=== PATIENT | male | born 1945 | race Caucasian/White ===

== ENCOUNTER 2018-01-03 10:45 | Inpatient (IN) | payer MEDICARE, BC ==
[~2018-01-03] VITALS: Ht 180.3 cm; Wt 82.6 kg
[2018-01-03] MEDS ORDERED: [UNRECOGNIZED DRUG - OTHER] IO (12:49)
[2018-01-03] MEDS ORDERED: ZOLPIDEM5 MG PO (12:50)
[2018-01-03] MEDS ORDERED: APRESOLINE10 MG PO (12:50)
[2018-01-03] MEDS ORDERED: ASPIRIN325 MG PO (12:51)
[2018-01-03] MEDS ORDERED: TRAMADOL HCL50 MG PO (12:51)
[2018-01-03] MEDS ORDERED: MIRALAX3350 NF PO (12:51)
[2018-01-03] MEDS ORDERED: OMEPRAZOLE20 MG PO (12:52)
[2018-01-03] MEDS ORDERED: LORATADINE10 M1 PO (12:52)
[2018-01-03] MEDS ORDERED: LIPITOR20 M1 PO (12:52)
[2018-01-03] MEDS ORDERED: TAMSULOSIN HCL0.4 MG PO (12:53)
[2018-01-03] MEDS ORDERED: MULTIVITAMIN PO (12:53)
[2018-01-03] MEDS ORDERED: VITAMIN C500 M6 PO (12:53)
[2018-01-03] MEDS ORDERED: SUPER B COM2 PO (12:54)
[2018-01-03] MEDS ORDERED: POTASSIUM GLUC550 MG PO (12:54)
[2018-01-03] MEDS ORDERED: FERRAPLUS 90 PO (12:55)
[2018-01-09] VITALS (9 sets, daily range): BP systolic 120–132; BP diastolic 64–81
--- NOTE | 2018-01-09 11:00 | NUR ---
PT TRANSPORTED TO [facility] @1100 VIA STRETCHER ACCOMPIANED BY KALYANI WILBURN. PT VS DONE. PT ASSESSMENT COMPLETED AT THIS TIME. A/O X3. SPEECH IS CLEAR. NO C/O N/V OR PAIN. RESP EVEN AND UNLABORED. LUNG SOUNDS CLEAR. INCENTIVE SPIROMETER AT BEDSIDE. BOWEL SOUNDS ACTIVE X4. STRONG RADIAL AND PEDAL PULSES. #20 LH. FLUSHED AND PATENT. SITE APPEARS HEALTHY. LT SHOULDER DRESSING CDI, SLING IN PLACE. SWELLING NOTED. ICE APPLIED. PT DENIES ANY NEEDS. POC DISCUSSED. SAFETY PRECAUTIONS IN PLACE. CALL LIGHT IN REACH. WILL CONTINUE TO MONITOR
[2018-01-09] MEDS ORDERED: LUMIGAN0.01 % OU (11:57)
[2018-01-09] MEDS ORDERED: BENICAR HCT1 TA2 PO (12:10)
--- NOTE | 2018-01-09 12:25 | NUR ---
PT RESTING IN BED. RESP EVEN AND UNLABORED. PT DENIES ANY PAIN. SLING TO ARM INTACT. CALL LIGHT IN REACH. URINAL AT BEDSIDE. WILL CONTINUE TO MONITOR
--- NOTE | 2018-01-09 16:11 | NUR ---
PT C/O LT SHOULDER PAIN. MEDICATED W/ TWO LORTAB PO. ICE PACK APPLIED TO LT SHOULDER. PT DENIES ANY FURTHER NEEDS. SAFETY PRECAUTIONS IN PLACE. CALL LIGHT IN REACH. WILL CONTINUE TO MONITOR
--- NOTE | 2018-01-09 19:30 | NUR ---
PATIENT RESTING IN BED AT THIS TIME-AWAKE ALERT AND ORIENTEDX3. PATIENT WITH LEFT ARM IN SLING. DRESSING TO LEFT SHOULDER CDI. ICE PACK TO LEFT SHOULDER ON AND OFF ORDERED. CMS TO LEFT FINGERS WNL. IV SITE TO LEFT HAND INTACT-APPEARS HEALTHY AT THIS TIME. STATES VOIDING QS WITHOUT ANY DIFFICULTY. DENIES ANY N/V AT THIS TIME. ENCOURAGED USE OF IS Q1H WHILE AWAKE. DEMONSTRATES ABILITY TO USE THE DEVICE PROPERLY. SAFETY PRECAUTIONS REINFORCED. CALL LIGHT IN REACH. WILL CONT TO MONITOR.
[2018-01-10 00:21] VITALS: BP 131/63
--- NOTE | 2018-01-10 00:45 | NUR ---
PATIENT UP TO THE BR TO VOID QS YELLOW URINE. ANCEF COMPLETED ORDERED VIA RIGHT HAND IV SITE. DRESSING TO RIGHT HAND SITE CHANGED AND J-LOOP APPLIED. SITE REMAINS HEALTHY AT THIS TIME. PATIENT MEDICATED WITH PERCOCET 10/325MG TABS 2 ORDERED FOR POST-OP PAIN-7/10 ON PAIN SCALE. STILL WITH SOME NUMBNESS TO LEFT FINGERS. FINGERS REMAINS WARM AND MOVEMENT IS GOOD. PATIENT ENCOURAGED TO USE IS Q1H WHILE AWAKE-STATES THAT HE HAS BEEN DOING IT INSTRUCTED. LEFT SHOULDER DRESSING REMAINS CDI-SLING TO LEFT ARM IN PL [facility]IR[facility]. SAFETY PRECAUTIONS REINFORCED. CALL LIGHT IN REACH. WILL CONT TO MONITOR.
[2018-01-10 03:19] VITALS: BP 124/62
--- NOTE | 2018-01-10 03:30 | NUR ---
PATIENT RESTING IN BED-C/O NAUSEA, AFRAID THAT HIS BP IS TOO LOW. VS TAKEN AND ARE STABLE AT THIS TIME. BP-124/62, HR-85, O2 SATS 94% ON RA AND AFEBRILE. PATIENT MEDICATED WITH ZOFRAN FOR NAUSEA. SAFETY PRECAUTIONS REINFORCED.CALL LIGHT IN REACH. WILL CONT TO MONITOR.
[2018-01-10 04:30] VITALS: BP 116/60
--- NOTE | 2018-01-10 04:43 | NUR ---
PATIENT RESTING IN BED-STILL NOT SLEEPING. CALL LIGHT IN REACH. WILL CONT TO MONITOR.
[2018-01-10 05:27] LABS: HEMOGLOBIN 11.6 g/dl (14.0-18.0); IMMATURE GRANULOCYTES 0.2 % (0.0-5.0); MEAN CORPUSCULAR HGB 33.1 pG CALC (26.0-32.0); MEAN CORPUSCULAR HGB CONC 35.3 g/L CALC (32.0-36.0); NEUT# 4.55 thou/uL (1.82-7.42); RED BLOOD COUNT 3.5 mill/uL (4.70-6.10); RED CELL DISTRI WIDTH 15.4 % (11.5-15.5)
[2018-01-10 05:28] LABS: HEMATOCRIT 32.9 % (39.0-50.0)
--- NOTE | 2018-01-10 05:30 | NUR ---
PATIENT RESTING IN BED. RIGHT HAND IV SITE WITH BLOOD LEAKING AT SITE. WHILE ATTEMPTING TO SECURE THE IV CATH PATIENT BROUGHT HAND UP AND IV FELL OUT. NEW IV SITE STARTED TO RIGHT FOREARM-#22 GAUGE WITH GOOD BLOOD RETURN. PATIENT CONT TO C/O NAUSEA- TOO EARLY FOR ZOFRAN AND PATIENT PROVIDED WITH GINGERALE. CALL LIGHT IN REACH. WILL CONT TO MONITOR.
[2018-01-10 05:46] LABS: ANION GAP 12 (6-22 (CALC)); BILIRUBIN, TOTAL 0.7 mg/dL (0.0-1.4); BUN 18 mg/dL (8-23); BUN/CREATININE RATIO 25 (12-20 (CALC)); CARBON DIOXIDE 22 mmol/l (22-30); CHLORIDE 105 mmol/l (95-108); CREATININE 0.7 mg/dL (0.7-1.3); GFR > 60 ML/MIN (>=60 (CALC)); GFR FOR AFR.AMER. > 60 ML/MIN (>=60 (CALC)); MAGNESIUM 1.5 mg/dL (1.6-2.3); POTASSIUM 4.2 mmol/l (3.5-5.1); SODIUM 135 mmol/l (137-146); TOTAL PROTEIN 5.5 g/dL (6.3-8.2)
[2018-01-10 05:48] LABS: ALBUMIN 3.1 g/dL (3.2-5.0); SGOT/AST 31 u/l (19-48)
[2018-01-10 05:49] LABS: ALKALINE PHOSPHATASE 33 u/l (38-126)
--- NOTE | 2018-01-10 07:10 | NUR ---
PT REPORT RECIEVED FROM KALYANI DIALLO. PT RESTING IN BED. NO S/S OF DISTRESS. CALL LIGHT IN REACH. WILL CONTINUE TO MONITOR
[2018-01-10 08:17] VITALS: BP 118/77
--- NOTE | 2018-01-10 08:17 | NUR ---
ASSESSMENT COMPLETE. PT A/O X3. SPEECH IS CLEAR. PT C/O NAUSEA, MEDICATED W/ 4MG ZOFRAN IV. RESP EVEN AND UNLABORED. LUNG SOUNDS CLEAR. BOWEL SOUNDS ACTIVE X4. STRONG RADIAL AND PEDAL PULSES. #22 RFA SL. FLUSHED AND PATENT. SITE APPEARS HEALTHY. PT POST OP DAY 1 LT SHOULDER. PT C/O ACHING LT SHOULDER PAIN 4 OUT OF 10 ON PAIN SCALE. MEDICATED W/ TWO 10/325 PERCOCET PO. ICE APPLIED TO LT SHOULDER. PT DENIES ANY FURTHER NEEDS. POC DISCUSSED. SAFETY PRECAUTIONS IN PLACE. CALL LIGHT IN REACH. WILL CONTINUE TO MONITOR
[2018-01-10 11:25] VITALS: BP 115/73
--- NOTE | 2018-01-10 11:30 | NUR ---
DR. CALLE IN TO SEE PT
[2018-01-10 12:10] VITALS: BP 101/66
--- NOTE | 2018-01-10 12:37 | NUR ---
PT APPEARS SLIGHTLY ANXIOUS AT THIS TIME, C/O OF NAUSEA AND SOME DIZZINESS. DISCUSSED W/ PT MEDICATION ADMINISTRATION AND WAYS TO DECREASE NAUSEA AND DIZZINESS. INSTRUCTED PT TO CALL BEFORE GETTING OUT OF BED AND TO RISE UP SLOWLY. PT STATES UNDERSTANDING. NO C/O PAIN AT THIS TIME. PT RESTING AT THIS TIME. LIGHTS DIMMED. SAFETY PRECAUTIONS IN PLACE. CALL LIGHT IN REACH. WILL CONTINUE TO MONITOR
[2018-01-10] MEDS ORDERED: PERCOCET 5/321 COMBO PO (13:00)
--- NOTE | 2018-01-10 14:11 | NUR ---
Spoke to patient about Percocet and opioid constipation, patient did not have any further questions
--- NOTE | 2018-01-10 15:30 | NUR ---
PT VERY ANXIOUS AT THIS TIME. C/O NAUSEA AND CONSTANTLY REQUESTING A LAXATIVE. DISCUSSED W/ PT PAIN MEDICATION ADMINISTRATION. OFFERED ALTERNATIVES SUCH WASH CLOTH AND REINFORCED RELAXATION TECHNIQUE, ALSO REMINDED PT HE RECIEVED A MIRALAX THIS MORNING. PTS ANXIETY DECREASES SLIGHTLY. WILL CONTINUE TO MONITOR
--- NOTE | 2018-01-10 16:10 | NUR ---
PT STILL ANXIOUS. HAS LT ARM HANGING OUT OF SLING. DISCUSSED W/ PT THE NEED TO KEEP ARM ELEVATED IN SLING TO HELP DECREASE PAIN AND SWELLING. PT UP TO THE RESTROOM AT THIS TIME. CALL LIGHT IN REACH. WILL CONTINUE TO MONITOR
--- NOTE | 2018-01-10 16:34 | NUR ---
PT C/O NAUSEA. MEDICATED WITH 4MG ZOFRAN IV. ICE PUT INTO ICE PACK. PT DENIES ANY FURTHER NEEDS. CALL LIGHT IN REACH. WILL CONTINUE TO MONITOR
--- NOTE | 2018-01-10 16:56 | NUR ---
D/C INSTRUCTIONS DISCUSSED W/ PT. NEW PRESCRIPTION AND CARE OF LT SHOULDEER DISCUSSED. PT STATES UNDERSTANDING. DENIES ANY FURTHER NEEDS. BETHANY WALKER IN TO TRANSPORT PT VIA WHEELCHAIR DOWNSTAIRS
--- NOTE | 2018-01-10 17:06 | NUR ---
Discharge instructions given. Patient verbalizes understanding of same. Discharged in stable condition via Wheelchair to Home with friend. All belongings sent with pt.
== END 2018-01-10 17:05 | disposition home health service (06) | DRG 483 ==
LOC: MS2 01-09 06:08
PROVIDERS: Internal Medicine Nephrology; ADMIT Orthopaedic Surgery; ATTEND Internal Medicine
PROC: 0RRK00Z Replacement of Left Shoulder Joint with Reverse Ball and Socket Synthetic Substitute, Open Approach (ICD-10-PCS; principal; 2018-01-09)
PROC: 0LS40ZZ Reposition Left Upper Arm Tendon, Open Approach (ICD-10-PCS; 2018-01-09)
PROC: 3E0T3BZ Introduction of Anesthetic Agent into Peripheral Nerves and Plexi, Percutaneous Approach (ICD-10-PCS; 2018-01-09)
DX: M19.012 Primary osteoarthritis, left shoulder (principal); S46.212A Strain of muscle, fascia and tendon of other parts of biceps, left arm, initial encounter; M25.312 Other instability, left shoulder; I10 Essential (primary) hypertension; M75.112 Incomplete rotator cuff tear or rupture of left shoulder, not specified as traumatic; E78.5 Hyperlipidemia, unspecified; K21.9 Gastro-esophageal reflux disease without esophagitis; N40.1 Benign prostatic hyperplasia with lower urinary tract symptoms; R35.1 Nocturia; X58.XXXA Exposure to other specified factors, initial encounter
CPT/HCPCS: C9290; J2710

== ENCOUNTER 2018-04-18 09:00 | Outpatient (RCR) | payer SELFPAY ==
[~2018-04-18 09:00] MED LIST: APRESOLINE10 MG PO; ASPIRIN325 MG PO; BENICAR HCT1 TA2 PO; FERRAPLUS 90 PO; LIPITOR20 M1 PO; LORATADINE10 M1 PO; LUMIGAN0.01 % OU; MIRALAX3350 NF PO; MULTIVITAMIN PO; OMEPRAZOLE20 MG PO; PERCOCET 5/321 COMBO PO; POTASSIUM GLUC550 MG PO; SUPER B COM2 PO; TAMSULOSIN HCL0.4 MG PO; TRAMADOL HCL50 MG PO; VITAMIN C500 M6 PO; ZOLPIDEM5 MG PO; [UNRECOGNIZED DRUG - OTHER] IO
== END 2018-04-18 10:00 | disposition home or self-care (01) | DRG 561 ==
LOC: OT 09:00
PROVIDERS: ATTEND Orthopaedic Surgery
DX: Z47.1 Aftercare following joint replacement surgery (principal); Z96.612 Presence of left artificial shoulder joint

== ENCOUNTER 2018-11-21 15:21 | Emergency (ER) | payer MEDICARE, OTHER ==
[~2018-11-21] VITALS: Ht 180.3 cm; Wt 102.0 kg
[2018-11-21 16:11] LABS: HEMATOCRIT 36.4 % (39.0-50.0); HEMOGLOBIN 12.6 g/dl (14.0-18.0); IMMATURE GRANULOCYTES 0.2 % (0.0-5.0); MEAN CELL VOLUME 91.7 fL CALC (80.0-100.0); MEAN CORPUSCULAR HGB 31.7 pG CALC (26.0-32.0); MEAN CORPUSCULAR HGB CONC 34.6 g/L CALC (32.0-36.0); NEUT# 2.46 thou/uL (1.82-7.42); RED BLOOD COUNT 3.97 mill/uL (4.70-6.10); RED CELL DISTRI WIDTH 14.1 % (11.5-15.5)
[2018-11-21 16:22] LABS: ANION GAP 15 (6-22 (CALC)); BILIRUBIN, TOTAL 0.5 mg/dL (0.0-1.4); BUN 19 mg/dL (8-23); BUN/CREATININE RATIO 25 (12-20 (CALC)); CARBON DIOXIDE 21 mmol/l (22-30); CHLORIDE 102 mmol/l (95-108); CREATININE 0.7 mg/dL (0.7-1.3); GFR > 60 ML/MIN (>=60 (CALC)); GFR FOR AFR.AMER. > 60 ML/MIN (>=60 (CALC)); LIPASE 39 u/l (23-300); POTASSIUM 4.3 mmol/l (3.5-5.1); SGOT/AST 22 u/l (19-48); SODIUM 134 mmol/l (137-146)
[2018-11-21 16:25] LABS: ALBUMIN 4.5 g/dL (3.2-5.0); ALKALINE PHOSPHATASE 55 u/l (38-126)
[2018-11-21] MEDS ORDERED: FINASTERIDE5 MG PO (16:36)
[2018-11-21] MEDS ORDERED: MOBIC7.5 M1 PO (16:37)
[2018-11-21] MEDS ORDERED: OXYCODONE5 MG PO (16:39)
[2018-11-21 17:28] LABS: URINE BILIRUBIN - DIPSTICK NEGATIVE (NEGATIVE); URINE BLOOD DIPSTICK NEGATIVE (NEGATIVE); URINE COLOR YELLOW; URINE GLUCOSE - DIPSTICK NEGATIVE (NEGATIVE); URINE KETONE NEGATIVE (NEGATIVE); URINE LEUK ESTERASE NEGATIVE (NEGATIVE); URINE NITRITE - DIPSTICK NEGATIVE (Negative); URINE PROTEIN - DIPSTICK NEGATIVE (NEG-TRACE); URINE UROBILINOGEN - DIPSTICK 0.2 E.U./dL (0.2)
[2018-11-21 18:00] VITALS: BP 139/80
== END 2018-11-21 18:00 | disposition home or self-care (01) ==
LOC: ED 15:21
DX: R10.31 Right lower quadrant pain (principal); R10.32 Left lower quadrant pain; I10 Essential (primary) hypertension; K21.9 Gastro-esophageal reflux disease without esophagitis; K57.30 Diverticulosis of large intestine without perforation or abscess without bleeding

== ENCOUNTER 2019-01-20 20:03 | Emergency (ER) | payer MEDICARE, OTHER ==
[~2019-01-20] VITALS: Ht 180.3 cm; Wt 84.0 kg
[~2019-01-20 20:03] MED LIST changes: +FINASTERIDE5 MG PO; +MOBIC7.5 M1 PO; +OXYCODONE5 MG PO
[2019-01-20 21:14] VITALS: BP 180/79
== END 2019-01-20 21:13 | disposition left against medical advice (07) ==
LOC: ED 20:03
DX: R10.13 Epigastric pain (principal); I10 Essential (primary) hypertension; Z91.19 Patient's noncompliance with other medical treatment and regimen

== ENCOUNTER 2019-02-01 | Inpatient (IN) | payer MEDICARE, OTHER ==
--- NOTE | 2019-01-29 13:00 | NUR ---
PT ARRIVED TO [facility] BY WC. ABLE TO TRANSFER SELF TO BED. CHANGED INTO GOWN. IV ESTABLISHED/BLOOD DRAWN. PT EDUCATED ON SAFETY & BED CONTROLS & CALLBELL.
[2019-01-29 13:20] VITALS: BP 92/54
[2019-01-29 13:44] LABS: HEMATOCRIT 36.4 % (39.0-50.0); IMMATURE GRANULOCYTES 0.4 % (0.0-5.0); MEAN CELL VOLUME 88.6 fL CALC (80.0-100.0); MEAN CORPUSCULAR HGB 31.6 pG CALC (26.0-32.0); MEAN CORPUSCULAR HGB CONC 35.7 g/L CALC (32.0-36.0); NEUT# 23.35 thou/uL (1.82-7.42); RED BLOOD COUNT 4.11 mill/uL (4.70-6.10); RED CELL DISTRI WIDTH 14.7 % (11.5-15.5)
[2019-01-29 13:57] LABS: ALBUMIN 3.7 g/dL (3.2-5.0); POTASSIUM 3.8 mmol/l (3.5-5.1); TOTAL PROTEIN 6.8 g/dL (6.3-8.2)
[2019-01-29 14:21] LABS: BILIRUBIN, TOTAL 6.7 mg/dL (0.0-1.4); CREATININE 2.8 mg/dL (0.7-1.3)
--- NOTE | 2019-01-29 14:45 | NUR ---
PT PRESENTS TO [facility] FROM HOME DIRECTED ADMIT. C/O GENERALIZED ABD PAIN & BLOATING, POOR APPETITE, & BILE IN BM x2 WEEKS. STATES DR ARANA TOLD HIM TO COME TO [facility] BC HIS "GALLBLADDER WAS BAD" AFTER REVIEWING HIS CT. DENIES ANY PAIN AT THIS TIME, STATES THIS IS THE BEST HES FELT IN A LONG TIME. PT SPEAKS WITH A HOARSE VOICE. A&Ox4. 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 US. EYES PERRLA @4. STRONG PULSE x4. NO EDEMA. -3 CAP REFILL. BREATHING EVEN/UNLABORED, LUNGS CTA. ABD SOFT/NONTENDER, ACTIVE BS. CALLBELL W/IN REACH. LAST BM WEB SITE ADMIN TODAY.
[2019-01-29 15:34] VITALS: BP 102/72
--- NOTE | 2019-01-29 17:10 | NUR ---
PT WITH VISITOR AT BEDSIDE; NO COMPLAINTS OR CONCERNS VOICED; CALL PEÑA WITHIN REACH; WILL CONTINUE TO MONITOR.
--- NOTE | 2019-01-29 17:25 | NUR ---
MICHAEL MEADOWS, @BEDSIDE
[2019-01-29 19:05] VITALS: BP 104/68
[2019-01-29 19:14] LABS: URINE BLOOD DIPSTICK SMALL (NEGATIVE); URINE GLUCOSE - DIPSTICK NEGATIVE (NEGATIVE); URINE KETONE NEGATIVE (NEGATIVE); URINE LEUK ESTERASE NEGATIVE (NEGATIVE); URINE NITRITE - DIPSTICK NEGATIVE (Negative); URINE PH 5.5 (4.5-8.0); URINE PROTEIN - DIPSTICK 30 mg/dL (NEG-TRACE); URINE SPECIFIC GRAVITY 1.025; URINE UROBILINOGEN - DIPSTICK 0.2 E.U./dL (0.2)
[2019-01-29 19:20] LABS: URINE BILIRUBIN - DIPSTICK NEGATIVE (NEGATIVE); URINE COLOR DK. YELLOW
[2019-01-29 19:22] LABS: URINE AMORPH SEDIMENT MODERATE hpf (NONE-FER)
--- NOTE | 2019-01-29 20:33 | NUR ---
CALLED DR. VALLADARES ABOUT PATIENT REQUEST FOR SLEEP AIDES WITH ORDERS MADE, FAX TO [employer].
--- NOTE | 2019-01-30 | NUR ---
REINFORCED ON NPO STATUS.
--- NOTE | 2019-01-30 00:41 | NUR ---
PATIENT RESTING IN BED WITH EYES CLOSED, WITH EVEN UNLABORED BREATHING CALL LIGHT AT REACH.
--- NOTE | 2019-01-30 04:36 | NUR ---
PATIENT APPEARS TO BE SLEPPING WITH EYES CLOSED, NO DISCOMFORTS NOTED AT THIS TIME.
[2019-01-30 04:37] VITALS: BP 116/71
[2019-01-30 05:03] LABS: HEMATOCRIT 30.7 % (39.0-50.0); MEAN CELL VOLUME 88.7 fL CALC (80.0-100.0); MEAN CORPUSCULAR HGB 31.5 pG CALC (26.0-32.0); MEAN CORPUSCULAR HGB CONC 35.5 g/L CALC (32.0-36.0); RED BLOOD COUNT 3.46 mill/uL (4.70-6.10); RED CELL DISTRI WIDTH 14.5 % (11.5-15.5)
[2019-01-30 05:17] LABS: POTASSIUM 3.2 mmol/l (3.5-5.1)
[2019-01-30 05:20] LABS: HEMOGLOBIN 10.9 g/dl (14.0-18.0)
[2019-01-30 05:23] LABS: CREATININE 1.8 mg/dL (0.7-1.3)
--- NOTE | 2019-01-30 07:05 | NUR ---
REPORT FROM EL AUGUSTE. PT RESTING IN BED AWAKE AND ALERT. NO APPARENT DISTRESS NOTED. PT DENIES ANY PAIN OR DISCOMFORT AT THIS TIME. IV SITE APPEARS HEALTHY, IV FLUIDS INFUSING WITHOUT DIFFICULTY. DISCUSSED POC. PT VERBALIZED UNDERSTANDING. PT REMAINS NPO AT THIS TIME. CALL LIGHT WITHIN REACH. WILL CONTINUE TO MONITOR.
--- NOTE | 2019-01-30 07:06 | NUR ---
POST VOOID BLADDER SCAN 249ML.
[2019-01-30 07:29] LABS: BILIRUBIN, TOTAL 4.3 mg/dL (0.0-1.4); DIRECT BILIRUBIN 0.8 mg/dl (0.0-0.3)
[2019-01-30 07:38] LABS: ALBUMIN 2.6 g/dL (3.2-5.0)
--- NOTE | 2019-01-30 07:45 | NUR ---
PT TRANSPORTED VIA WHEELCHAIR BY STAFF TO RADIOLOGY IN STABLE CONDITION.
[2019-01-30 07:56] VITALS: BP 113/69
--- NOTE | 2019-01-30 12:13 | NUR ---
PT RETURNED FROM RADIOLOGY IN STABLE CONDITION. IV FLUIDS RESTARTED.
--- NOTE | 2019-01-30 13:00 | NUR ---
PT TRANSPORTED TO RADIOLOGY DEPARTMENT VIA WHEELCHAIR BY STAFF IN STABLE CONDITION.
--- NOTE | 2019-01-30 13:58 | NUR ---
PT RETURNED TO ROOM VIA WHEELCHAIR IN STABLE CONDITION.
[2019-01-30 16:03] VITALS: BP 96/73
--- NOTE | 2019-01-30 17:04 | NUR ---
DIET ORDERS RECEIVED FROM COTTRELL BLOWER. PT TO BE NPO AFTER MIDNIGHT. DISCUSSED WITH PT AT THIS TIME, VERBALIZED UNDERSTANDING.
[2019-01-30 18:46] VITALS: BP 117/76
--- NOTE | 2019-01-30 21:45 | NUR ---
PT RESTING IN BED, ALERT AND ORIENTED.RESPIRATIONS EVEN AND UNLABORED ON RA. LUNGS SOUND CLEAR. PT DENIES ANY PAIN OR DISCOMFORT AT THIS TIME. 22# LH PATENT AND APPEARS HEALTHY. #22 RH PATENT AND APPEARS HEALTHY. CALL PEÑA WITHIN REACH. WILL CONTINUE TO MONITOR.
--- NOTE | 2019-01-31 00:12 | NUR ---
PT RESTING IN BED WITH EYES CLOSED. RESPIRATIONS EVEN AND UNLABORED ON RA. NO S.S OF DISTRESS AT THIS TIME. SAFETY PRECAUTIONS IN PLACE. WILL CONTINUE TO MONITOR.
--- NOTE | 2019-01-31 04:09 | NUR ---
PT RESTING IN BED. RESPIRATIONS EVEN AND UNLABORED ON RA. NO S/S OF DISTRESS AT THIS TIME. SAFETY PRECAUTIONS IN PLACE. WILL CONTINUE TO MONITOR.
[2019-01-31 04:17] VITALS: BP 100/67
[2019-01-31 05:12] LABS: HEMOGLOBIN 10.8 g/dl (14.0-18.0); MEAN CELL VOLUME 89.1 fL CALC (80.0-100.0); MEAN CORPUSCULAR HGB CONC 34.8 g/L CALC (32.0-36.0); RED BLOOD COUNT 3.48 mill/uL (4.70-6.10); RED CELL DISTRI WIDTH 14.7 % (11.5-15.5)
[2019-01-31 05:30] LABS: ALBUMIN 2.3 g/dL (3.2-5.0); ALKALINE PHOSPHATASE 452 u/l (38-126); AMYLASE 46 u/l (30-110); ANION GAP 11 (6-22 (CALC)); BUN 46 mg/dL (8-23); BUN/CREATININE RATIO 36 (12-20 (CALC)); CARBON DIOXIDE 23 mmol/l (22-30); CHLORIDE 108 mmol/l (95-108); CREATININE 1.3 mg/dL (0.7-1.3); GFR 54 ML/MIN (>=60 (CALC)); GFR FOR AFR.AMER. > 60 ML/MIN (>=60 (CALC)); POTASSIUM 3.4 mmol/l (3.5-5.1); SGOT/AST 45 u/l (19-48); SODIUM 138 mmol/l (137-146); TOTAL PROTEIN 4.7 g/dL (6.3-8.2)
--- NOTE | 2019-01-31 07:05 | NUR ---
REPORT RECEIVED FROM NEDRN;PT RESTING IN SUPINE POSITION;INTRODUCED SELF TO PT AND POC DISCUSSED;RESPIRATIONS EVEN AND UNLABORED ON RA;IV FLUIDS INFUSING TO LEFT WRIST WITH EASE PER ORDER;NPO DIET REINFORCED;PT ENCOURAGED TO CALL FOR ASSISTANCE IF NEEDED;FALL PRECAUTIONS IN PLACE WITH CALL LIGHT IN REACH;WILL CONTINUE TO MONITOR
[2019-01-31 08:38] VITALS: BP 120/81
--- NOTE | 2019-01-31 08:40 | NUR ---
PT RESTING IN SEMI FOWLERS POSITION,A&O X3;VS OBTAINED AND ASSESSMENT COMPLETED;PT REPORTS LOWER BACK PAIN RATING 6/10 ON THE PAIN SCALE AND REQUESTS PAIN MEDICATION, PT TO BE MEDICATED WITH PRN TYLENOL 650MG PO;RESPIRATIONS EVEN AND UNLABORED ON RA,CLEAR LUNG SOUNDS NOTED;ABDOMEN SOFT ON PALPATION AND ACTIVE IN ALL 4 QUADRANTS;STRONG PEDAL PULSES;SKIN INTACT;#22G TO LEFT WRIST INFUSING LR @ 150ML/HR PER ORDER, #22G TO RIGHT HAND FLUSHED AND PATENT;DIET ADVANCED PER ORDER;PT DENIES ANY ADDITIONAL NEEDS AT THIS TIME AND IS ENCOURAGED TO CALL FOR ASSISTANCE IF NEEDED;FALL PRECAUTIONS IN PLACE WITH CALL LIGHT IN REACH;WILL CONTINUE TO MONITOR
--- NOTE | 2019-01-31 08:50 | NUR ---
INFORMED CONSENT OBTAINED FOR LAPROSCOPIC CHOLECYSTECTOMY.ALL RISKS AND BENEFITS DISCUSSED IN DEPTH WITH PT AND QUESTIONS ANSWERED AT THIS TIME.PT VERBALIZES UNDERSTANDING OF PROCEDURE.
--- NOTE | 2019-01-31 11:40 | NUR ---
PT RESTING IN SUPINE POSITION;RESPIRATIONS EVEN AND UNLABORED ON RA;IV FLUIDS INFUSING WITH EASE AND ABX HUNG AT THIS TIME;PT REPORTS LOWER BACK PAIN AND REQUESTS PAIN MEDICATION, PT EDUCATED ON PAIN MEDICATION SCHEDULE AND VERBALIZES UNDERSTANDING,KAYLYNN RIVERA TO BE NOTIFIED OF REQUEST;ENCOURAGED TO CALL FOR ASSISTANCE IF NEEDED;CALL LIGHT IN REACH;WILL CONTINUE TO MONITOR
--- NOTE | 2019-01-31 12:40 | NUR ---
PT MEDICATED WITH DILAUDID 1MG IVP FOR LOWER BACK PAIN RATING 6/10 ON THE PAIN SCALE,WILL CONTINUE TO MONITOR FOR EFFECTIVENESS
--- NOTE | 2019-01-31 15:15 | NUR ---
PT RESTING IN SEMI FOWLERS POSITION;RESPIRATIONS EVEN AND UNLABORED ON RA;PT REPORTS RELIEF SINCE PAIN MEDICATION ADMINISTRATION;IV FLUIDS CONTINUE TO INFUSE TO LEFT WRIST WITH EASE;PT DENIES ANY ADDITIONAL NEEDS AT THIS TIME AND IS ENCOURAGED TO CALL FOR ASSISTANCE IF NEEDED;CALL LIGHT IN REACH;WILL CONTINUE TO MONITOR
[2019-01-31 16:55] VITALS: BP 93/63
[2019-01-31 18:37] VITALS: BP 103/69
--- NOTE | 2019-01-31 19:25 | NUR ---
REPORT RECEIVED FROM AUSTYN GILLILAND. PT RESTING IN BED. NO S/S OF DISTRESS AT THIS TIME. SAFETY PRECAUTIONS IN PLACE. WILL CONTINUE TO MONITOR.
--- NOTE | 2019-01-31 21:09 | NUR ---
PT RESTING IN BED. ALERT AND ORIENTED. RESPIRATIONS EVEN AND UNLABORED ON RA. LUNGS SOUND CLEAR. PEDAL PULSES WEAK. CALL PEÑA WITHIN REACH. WILL CONTINUE TO MONITOR.
[2019-02-01] VITALS (9 sets, daily range): BP systolic 103–124; BP diastolic 65–78
--- NOTE | 2019-02-01 | NUR ---
PT RESTING IN BED. NO S/S OF DISTRESS AT THIS TIME. SAFETY PRECAUTIONS IN PLACE. WILL CONTINUE TO MONITOR
--- NOTE | 2019-02-01 03:59 | NUR ---
PT RESTING IN BED. RESPIRATIONS EVEN AND UNLABORED ON RA. SAFETY PRECAUTIONS IN PLACE. WILL CONTINUE TO MONITOR.
[2019-02-01 05:17] LABS: HEMATOCRIT 27.6 % (39.0-50.0); HEMOGLOBIN 9.4 g/dl (14.0-18.0); MEAN CELL VOLUME 90.8 fL CALC (80.0-100.0); MEAN CORPUSCULAR HGB 30.9 pG CALC (26.0-32.0); MEAN CORPUSCULAR HGB CONC 34.1 g/L CALC (32.0-36.0); RED BLOOD COUNT 3.04 mill/uL (4.70-6.10); RED CELL DISTRI WIDTH 14.9 % (11.5-15.5)
[2019-02-01 05:29] LABS: PROTHROMBIN TIME 10.7 SECONDS (9.0-12.5)
[2019-02-01 05:33] LABS: ANION GAP 11 (6-22 (CALC)); BUN 30 mg/dL (8-23); BUN/CREATININE RATIO 29 (12-20 (CALC)); CARBON DIOXIDE 23 mmol/l (22-30); CHLORIDE 108 mmol/l (95-108); GFR > 60 ML/MIN (>=60 (CALC)); GFR FOR AFR.AMER. > 60 ML/MIN (>=60 (CALC)); POTASSIUM 3.7 mmol/l (3.5-5.1); SODIUM 138 mmol/l (137-146)
--- NOTE | 2019-02-01 06:15 | NUR ---
PT IV # 22 RH HAND FOUND DISLODGED. IV CATHETER INTACT, NEW IV TO BE STARTED.
--- NOTE | 2019-02-01 08:00 | NUR ---
PT SEEN AWAKE, ALERT, ORIENTED X 3. PT CONTINUES NPO PER PENDING SURGERY THIS AM. NO COMPLAINTS OF ABDOMINAL PAIN OR OTHERWISE. SURGICAL TECHS HERE TO PLATFORM MAN PT.
[2019-02-01 08:05] LABS: ALBUMIN 2.4 g/dL (3.2-5.0); BILIRUBIN, TOTAL 2.4 mg/dL (0.0-1.4)
--- NOTE | 2019-02-01 12:00 | NUR ---
PT HAS RETURNED FROM SURGERY, CHOLECYSTECTOMY. NO COMPLAINT OF PAIN, NO CHANGE IN MENTAL STATUS. ABDOMINAL INCISIONS ARE CLEAN AND DRY. PT STATES THAT HE DOES NOT HAVE AN APPETITE RIGHT NOW.
--- NOTE | 2019-02-01 16:00 | NUR ---
PT WITH APPETITE RETURNING HAS BEEN PROVIDED PUDDING AND SANDWICH. PT DENIES PAIN, NO EVIDENCE DISTRESS.
--- NOTE | 2019-02-01 19:35 | NUR ---
PT RESTING IN BED. A&O X3. C/O BACK PAIN. IS AT BEDSIDE, PT DEMONSTRATED ABILITY TO USE DEVICE. DISCUSSED POC. ASSESSMENT COMPLETED AT THIS TIME. CALL LIGHT IN REACH CONTINUE TO MONITOR.
--- NOTE | 2019-02-01 22:21 | NUR ---
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
--- NOTE | 2019-02-02 00:02 | NUR ---
PT SLEEPING IN BED. NO SIGNS OF DISTRESS. CONTINUE TO MONITOR.
--- NOTE | 2019-02-02 04:01 | NUR ---
PT SLEEPING IN BED. NO DISTRESS NOTED. CONTINUE TO MONITOR.
[2019-02-02 04:13] VITALS: BP 104/65
[2019-02-02 06:14] LABS: HEMATOCRIT 27.8 % (39.0-50.0); HEMOGLOBIN 9.4 g/dl (14.0-18.0); MEAN CELL VOLUME 94.2 fL CALC (80.0-100.0); MEAN CORPUSCULAR HGB 31.9 pG CALC (26.0-32.0); MEAN CORPUSCULAR HGB CONC 33.8 g/L CALC (32.0-36.0); PLATELET COUNT 186 thou/uL (130-400); RED BLOOD COUNT 2.95 mill/uL (4.70-6.10); RED CELL DISTRI WIDTH 15.1 % (11.5-15.5)
[2019-02-02 06:23] LABS: ALKALINE PHOSPHATASE 287 u/l (38-126); ANION GAP 11 (6-22 (CALC)); BUN 30 mg/dL (8-23); BUN/CREATININE RATIO 29 (12-20 (CALC)); CARBON DIOXIDE 24 mmol/l (22-30); CHLORIDE 108 mmol/l (95-108); GFR > 60 ML/MIN (>=60 (CALC)); GFR FOR AFR.AMER. > 60 ML/MIN (>=60 (CALC)); POTASSIUM 4.1 mmol/l (3.5-5.1); SGOT/AST 36 u/l (19-48); SODIUM 139 mmol/l (137-146)
[2019-02-02 06:32] LABS: MAGNESIUM 1.7 mg/dL (1.6-2.3)
[2019-02-02 06:48] LABS: IMMATURE GRANULOCYTES 6.8 % (0.0-5.0)
[2019-02-02 06:52] LABS: MANUAL DIFFERENTIAL YES
[2019-02-02 06:53] LABS: ANISOCYTOSIS FEW; BAND 2 % (0-8); HYPOCHROMIA FEW; POIKILOCYTOSIS FEW
[2019-02-02 06:54] LABS: TARGET CELLS FEW; TOXIC GRANULATION MODERATE
[2019-02-02 07:45] VITALS: BP 113/78
--- NOTE | 2019-02-02 08:15 | NUR ---
ASSESSMENT DONE. PT IS A&O X3. PT DENIES PAIN AT THIS TIME. RESPS EVEN AND UNLABORED. X4 INCISIONS IN ABD CDI. PT USING THE I.S. PT DENIES ANY NEEDS AT THIS TIME. CALL LIGTH IN REACH.
--- NOTE | 2019-02-02 09:00 | NUR ---
DR. ARANA AT BEDSIDE TO DISCUSS POC WITH PT.
[2019-02-02] MEDS ORDERED: PERCOCET 5/325M1 TAB PO (09:02)
--- NOTE | 2019-02-02 12:00 | NUR ---
PT DENIES ANY NEEDS. PT STATED HE IS WAITING FOR HIS RIDE TO GO HOME. CALL LIGHT IN REACH.
--- NOTE | 2019-02-02 12:42 | NUR ---
Discharge instructions given. Patient verbalizes understanding of same. Discharged in stable condition via Wheelchair to Home with volunteer. All belongings sent with pt.
== END 2019-02-02 12:42 | disposition home or self-care (01) | DRG 418 ==
PROVIDERS: Internal Medicine; Nurse Practitioner Family; ADMIT Surgery
PROC: 0FT44ZZ Resection of Gallbladder, Percutaneous Endoscopic Approach (ICD-10-PCS; principal; 2019-02-01)
DX: K81.0 Acute cholecystitis (principal); N17.9 Acute kidney failure, unspecified; Q43.8 Other specified congenital malformations of intestine; K81.1 Chronic cholecystitis; I10 Essential (primary) hypertension; E78.5 Hyperlipidemia, unspecified; K21.9 Gastro-esophageal reflux disease without esophagitis; M19.90 Unspecified osteoarthritis, unspecified site; N40.0 Benign prostatic hyperplasia without lower urinary tract symptoms; E86.1 Hypovolemia; E80.6 Other disorders of bilirubin metabolism; E86.0 Dehydration; N28.1 Cyst of kidney, acquired; D64.9 Anemia, unspecified; M25.512 Pain in left shoulder; G89.29 Other chronic pain; K76.89 Other specified diseases of liver; E87.6 Hypokalemia; F41.9 Anxiety disorder, unspecified; G47.00 Insomnia, unspecified; Z87.891 Personal history of nicotine dependence; Z91.81 History of falling
CPT/HCPCS: A9537; G0378; G0379; J0131; J1100; J2710; J2805; Q9967

== ENCOUNTER 2019-02-04 12:56 | Emergency (ER) | payer MEDICARE, OTHER ==
[~2019-02-04] VITALS: Ht 180.3 cm; Wt 86.0 kg
[~2019-02-04 12:56] MED LIST changes: +PERCOCET 5/325M1 TAB PO
[2019-02-04 14:08] LABS: HEMATOCRIT 29.3 % (39.0-50.0); MEAN CELL VOLUME 92.1 fL CALC (80.0-100.0); MEAN CORPUSCULAR HGB 31.4 pG CALC (26.0-32.0); MEAN CORPUSCULAR HGB CONC 34.1 g/L CALC (32.0-36.0); NEUT# 10.83 thou/uL (1.82-7.42); RED BLOOD COUNT 3.18 mill/uL (4.70-6.10); RED CELL DISTRI WIDTH 14.5 % (11.5-15.5)
[2019-02-04 14:29] LABS: ALBUMIN 2.5 g/dL (3.2-5.0); ALKALINE PHOSPHATASE 294 u/l (38-126); ANION GAP 13 (6-22 (CALC)); BUN 18 mg/dL (8-23); BUN/CREATININE RATIO 24 (12-20 (CALC)); CARBON DIOXIDE 23 mmol/l (22-30); CHLORIDE 102 mmol/l (95-108); CREATININE 0.7 mg/dL (0.7-1.3); GFR > 60 ML/MIN (>=60 (CALC)); GFR FOR AFR.AMER. > 60 ML/MIN (>=60 (CALC)); POTASSIUM 3.9 mmol/l (3.5-5.1); SGOT/AST 31 u/l (19-48); SODIUM 134 mmol/l (137-146); TOTAL PROTEIN 5.2 g/dL (6.3-8.2)
[2019-02-04 14:34] LABS: BILIRUBIN, TOTAL 1.4 mg/dL (0.0-1.4)
[2019-02-04 15:39] LABS: URINE BILIRUBIN - DIPSTICK NEGATIVE (NEGATIVE); URINE BLOOD DIPSTICK NEGATIVE (NEGATIVE); URINE COLOR YELLOW; URINE GLUCOSE - DIPSTICK NEGATIVE (NEGATIVE); URINE KETONE NEGATIVE (NEGATIVE); URINE LEUK ESTERASE NEGATIVE (NEGATIVE); URINE NITRITE - DIPSTICK NEGATIVE (Negative); URINE PROTEIN - DIPSTICK NEGATIVE (NEG-TRACE)
[2019-02-04] MEDS ORDERED: BACTRIM DS1 TAB PO (17:54)
[2019-02-04] MEDS ORDERED: MIRALAX3350 N1 PO (17:54)
[2019-02-04 18:16] VITALS: BP 118/73
== END 2019-02-04 18:26 | disposition home or self-care (01) ==
LOC: ED 12:56
PROVIDERS: Emergency Medicine
DX: B34.9 Viral infection, unspecified (principal); F41.9 Anxiety disorder, unspecified

== ENCOUNTER 2020-01-11 06:17 | Day surgery (SDC) | payer MEDICARE ==
[~2020-01-11 06:17] MED LIST changes: +BACTRIM DS1 TAB PO; +MIRALAX3350 N1 PO
[2020-01-11 10:09] VITALS: BP 152/68
[2020-01-15] MEDS ORDERED: XANAX1 MG PO (04:23)
[2020-01-15] MEDS ORDERED: TAMSULOSIN0.4 MG PO (05:22)
== END 2020-01-11 10:10 | disposition home or self-care (01) ==
LOC: ORM 06:17
PROVIDERS: ATTEND Urology
PROC: 0VB08ZZ Excision of Prostate, Via Natural or Artificial Opening Endoscopic (ICD-10-PCS; principal; 2020-01-11)
DX: N40.1 Benign prostatic hyperplasia with lower urinary tract symptoms (principal); N13.8 Other obstructive and reflux uropathy; R33.8 Other retention of urine; R35.0 Frequency of micturition; Z20.828 Contact with and (suspected) exposure to other viral communicable diseases
CPT/HCPCS: J0131; J2710

== ENCOUNTER 2022-05-17 08:19 | Day surgery (SDC) | payer MEDICARE ==
[~2022-05-17] VITALS: Ht 180.3 cm; Wt 104.8 kg
[~2022-05-17 08:19] MED LIST changes: +24HR ALLERGY R180 MG PO; +ACETAMINOP160 MG/5 M PO; +ANORO ELLIPTA 61 AER IN; +LOSARTAN POTASS50 MG PO; +MELOXICAM7.5 MG PO; +NORVASC PO; +OMEPRAZOLE DR40 MG PO; +TAMSULOSIN0.4 MG PO; +XANAX1 MG PO; +[UNRECOGNIZED DRUG - OTHER] PO
[2022-05-17 10:56] VITALS: BP 144/96
== END 2022-05-17 10:45 | disposition home or self-care (01) ==
LOC: ENDO 08:19 → ORM 12:05 → ENDO 12:05 → ORM 12:45
PROVIDERS: ATTEND Internal Medicine Gastroenterology
PROC: 0DBL8ZX Excision of Transverse Colon, Via Natural or Artificial Opening Endoscopic, Diagnostic (ICD-10-PCS; principal; 2022-05-17)
DX: Z12.11 Encounter for screening for malignant neoplasm of colon (principal); K63.5 Polyp of colon; K57.30 Diverticulosis of large intestine without perforation or abscess without bleeding; K64.8 Other hemorrhoids; Z86.010 Personal history of colon polyps